=== PATIENT | female | born 1970 | race Two or more races ===

== ENCOUNTER 2019-06-10 21:38 | Emergency (ER) | payer SELFPAY ==
[2019-06-10] MEDS ORDERED: HYDROCODONE/ACETAMINOPHEN 5-325 MG (6 TAB/ER DISP) PO PRN (22:10)
[2019-06-10] MEDS ORDERED: PENICILLIN V POTASSIUM 500 MG TABLET PO ONE (22:11)
--- NOTE | 2019-06-10 22:13 | ER Document Report ---
HPI - HPI Time Seen by Provider: 06/10/19 22:10 Pain Level: 4 Context: Patient is a 48-year-old female who presents emergency department with a chief complaint of right upper dental pain. Patient reports the pain started about 2 days ago. Patient reports this is sharp in nature. Patient reports she is only attempted to take Orajel earlier today. Patient reports she does not have a dentist. Patient denies facial swelling. reports that he has noticed some slight facial swelling on her. Patient denies fever. Denies difficulty swallowing. - REPRODUCTIVE Reproductive: DENIES: : Past Medical History - General Information source: Patient - Social History Smoking Status: Unknown if Ever Smoked Lives with: Spouse/Significant other Family History: None Patient has suicidal ideation: No Patient has homicidal ideation: No - Past Medical History Cardiac Medical History: Reports: None Pulmonary Medical History: Reports: None EENT Medical History: Reports: None Neurological Medical History: Reports: None Endocrine Medical History: Reports: None Renal/ Medical History: Reports: None Malignancy Medical History: Reports: None GI Medical History: Reports: None Musculoskeletal Medical History: Reports None Skin Medical History: Reports None Psychiatric Medical History: Reports: None Traumatic Medical History: Reports: None Infectious Medical History: Reports: None Surgical Hx: Negative Vertical Provider Document - CONSTITUTIONAL Agree With Documented VS: Yes Exam Limitations: No Limitations General Appearance: No Apparent Distress - HEENT HEENT: Atraumatic, Normocephalic, PERRLA Mouth Diagram: 1 - Pain when palpating tooth, no surrounding abscess, no broken tooth, erythematous surrounding gums. - NECK Neck: Normal Inspection - RESPIRATORY Respiratory: Breath Sounds Normal, No Respiratory Distress - CARDIOVASCULAR Cardiovascular: Regular Rate, Regular Rhythm - GI/ABDOMEN Gastrointestinal: Abdomen Soft, Abdomen Non-Tender, Normal Bowel Sounds - MUSCULOSKELETAL/EXTREMETIES Musculoskeletal/Extremeties: FROM - NEURO Level of Consciousness: Awake, Alert, Appropriate - DERM Integumentary: Warm, Dry, No Rash Course - Vital Signs Vital signs: Temp Pulse Resp BP Pulse Ox 98.8 F 88 18 145/98 H 100 06/10/19 21:41 06/10/19 21:41 06/10/19 21:41 06/10/19 21:41 06/10/19 21:41 Discharge - Discharge Clinical Impression: Dental infection Condition: Stable Disposition: HOME, SELF-CARE Instructions: Oral Narcotic Medication ([facility]), Penicillin V K ([facility]), Toothache ([facility]) Additional Instructions: Today was seen in the emergency department for dental pain. It does appear that you have a dental infection. We I am placing you on oral antibiotics. I am also giving you some Hazard to go home with. Hazard is a narcotic and contains hydrocodone. Do not drive or operate heavy machinery while on this. Ultimately do need to follow-up with a dentist. Please follow-up with [facility] as they can help patients who do not have health insurance. Also incorporate ibuprofen/Motrin for your pain as this is an anti-inflammatory. Please return the emergency department if you develop a high fever, chills, neck pain, worsening pain or increasing swelling to your face. Dental Infection or Abscess You have an infection, perhaps an abscess (pus formation) of the gum around one of your teeth, which is probably decayed. If there is an abscess, it may drain on its own or it may need to be opened or lanced. Severe swelling or drainage around a tooth usually means a deep dental abscess which usually requires evaluation and treatment by a dentist or oral surgeon. Antibiotics may be prescribed while awaiting dental treatment. If you develop high fever with chills, worsening pain, or increasing swelling in the area, see a dentist or oral surgeon immediately or return to the Emergency Department immediately. Prescriptions: Penicillin V Potassium [Penicillin Vk 500 mg Tablet] 500 mg PO BID #20 tablet Referrals: [facility] [Provider Group] - Follow up as needed
[2019-06-10 22:54] VITALS: BP 139/89
== END 2019-06-10 22:54 | disposition home or self-care (01) ==
LOC: ER 21:38
DX: K04.7 Periapical abscess without sinus (principal); K08.89 Other specified disorders of teeth and supporting structures
CPT/HCPCS: 99282